=== PATIENT | female | born 1940 ===

== ENCOUNTER 2017-07-14 10:48 | Outpatient (CLI) | payer MEDICARE ==
--- NOTE | 2017-07-14 11:17 | XRay Report ---
LEFT HIP RADIOGRAPHS INDICATION: Hip pain. COMPARISON: None similar at this institution. FINDINGS: An AP pelvic radiograph with a frog-leg projection of the left hip suggests osteopenia/osteoporosis. Lower lumbar degenerative changes with asymmetric L4-L5 disc narrowing on the right noted. Right hemipelvic surgical clip. Intact SI and hip joints with normal femoral head contours bilaterally. Left hip joint space narrowing medially may though be present. No significant acetabular spurring. Nonobstructive bowel gas pattern. CONCLUSION: No acute radiographic abnormality though few degenerative changes noted, as above. Thank you for the opportunity to participate in this patient's care.
== END 2017-07-14 10:49 | disposition home or self-care (01) ==
LOC: SPVIMAG 10:48
PROVIDERS: ATTEND Orthopaedic Surgery
DX: M16.12 Unilateral primary osteoarthritis, left hip (principal); M47.896 Other spondylosis, lumbar region